=== PATIENT | female | born 1995 | race African-American/Black ===

== ENCOUNTER 2021-09-11 03:21 | Emergency (ER) | payer MEDICAID ==
[~2021-09-11] VITALS: Ht 165.1 cm; Wt 69.9 kg
[2021-09-11 04:25] LABS: Basophils # (auto) 0 10 ^3/uL (0-0.2); Basophils % (auto) 0.4 % (0.0-2.0); Eosinophils # (auto) 0 10 ^3/uL (0-0.8); Eosinophils % (auto) 0.5 % (0.0-7.0); Hematocrit 36.4 % (36.0-46.0); Hemoglobin 12.5 g/dL (12.2-16.2); Lymphocytes # (auto) 0.9 10 ^3/uL (0.4-5.4); Mean Corpuscular Hemoglobin 29.6 pg (28.0-32.0); Mean Corpuscular Hgb Conc. 34.3 g/dL (32.0-36.0); Mean Corpuscular Volume 86.4 fL (80.0-100.0); Monocytes # (auto) 0.6 10 ^3/uL (0-1.3); Monocytes % (auto) 8.9 % (0.0-12.0); Neutrophils # (auto) 5.1 10 ^3/uL (1.6-8.6); Neutrophils % (auto) 76.2 % (37.0-80.0); Red Blood Cells 4.21 10^6/uL (4.0-5.20); Red Cell Distribution Width 13.4 % (11.8-14.3); White Blood Cell 6.7 10^3/uL (4.4-10.8)
[2021-09-11 04:45] LABS: Albumin 3.7 g/dL (3.4-5.0); BUN/Creatinine Ratio 6.8; Calcium 9.1 mg/dL (8.5-10.1); Potassium 3.9 mmol/L (3.5-5.1)
[2021-09-11 04:48] LABS: Bilirubin, Total 0.4 mg/dL (0.2-1.0); Total Protein 7.7 g/dL (6.4-8.2)
[2021-09-11] MEDS ORDERED: HYDR-4902 PO (06:26)
[2021-09-11] MEDS ORDERED: HYDROcodone-ACET 5/325MG TAB PO ONE (06:30)
[2021-09-11 09:14] LABS: Urine Specific Gravity 1.018 (1.001-1.035)
[2021-09-11 09:16] LABS: Urine Blood 1+ /uL (Negative)
[2021-09-11] MEDS ORDERED: NITR-87 PO (09:52)
[2021-09-11 10:10] VITALS: BP 107/71
[2021-09-11 11:25] LABS: Urine Bacteria Many /hpf (None Seen); Urine WBC 3 /hpf (0 - 5)
== END 2021-09-11 10:12 | disposition home or self-care (01) ==
LOC: EDUNIT# 03:21 → EDBD 03:21 → ER 03:30
DX: C79.9 Secondary malignant neoplasm of unspecified site (principal); R10.11 Right upper quadrant pain; C78.00 Secondary malignant neoplasm of unspecified lung; Z85.9 Personal history of malignant neoplasm, unspecified
CPT/HCPCS: 36415; 74176; 80053; 81001; 81025; 83690; 84702; 85025